=== PATIENT | male | born 1985 | race Caucasian/White ===

== ENCOUNTER 2019-08-30 08:13 | Emergency (ER) | payer OTHER ==
[~2019-08-30] VITALS: Ht 188 cm; Wt 104.3 kg
--- OUTSIDE RECORDS SUMMARY | 2019-08-30 08:40 | XMS ---
PreManage Notification: ALDA RON [employer] Events No recent Security Events currently on file CRITERIA MET - PDMP CARE PROVIDERS Corey Rosa Community Health Worker 04/20/2018-Alexandrea Peraza - PHONE: [phone] RYDER LAROSE Nurse Practitioner Current PHONE: [phone] RYDER LAROSE Primary Care Current PHONE: Unknown Corey Peraza - Case or Plastics Supervisor Current Shel[place] PHONE: [phone] Shanika has no Care Guidelines for this patient. Geovanni VISIT COUNT (12 MO.) [address] [address] JOSÉ MANUEL Anthony TOTAL 10 NOTE: Visits indicate total known visits. ED/UCC VISIT TRACKING (12 MO.) 08/30/2019 08:13 JOS[facility] MANU[facility] [place] TYPE: Emergency COMPLAINT: - BACK AND SHOULDER PAIN, NON INJ 06/15/2019 07:11 [facility] [place] TYPE: Emergency DIAGNOSES: - Diarrhea, unspecified - Acute bronchitis due to other specified organisms - Pain, unspecified - Nausea with vomiting, unspecified - SOB,CHEST PAIN 02/09/2019 10:27 [facility] [place] TYPE: Emergency DIAGNOSES: - CHEST PAIN - Other chest pain 12/11/2018 09:02 [facility] [place] TYPE: Emergency DIAGNOSES: - Slow transit constipation - abdominal pain - Functional diarrhea - Left upper quadrant pain 11/29/2018 07:49 [facility] [place] TYPE: Emergency DIAGNOSES: - ABDOMINAL PAIN - Epigastric pain 11/23/2018 08:00 [facility] [place] TYPE: Emergency DIAGNOSES: - BACK PAIN - Other chronic pain - Pain in thoracic spine 11/22/2018 21:14 [facility] [place] TYPE: Emergency DIAGNOSES: - BACK PAIN 11/12/2018 21:42 [facility] [place] TYPE: Emergency DIAGNOSES: - Other chest pain - CHEST PAIN [facility]2018 07[facility] DIAGNOSES: - Other specified dorsopathies, lumbar region - LOWER BACK AND RIGHT HIP PAIN 09/12/2018 08:59 [facility] [place] TYPE: Emergency DIAGNOSES: - Back pain - Pain in thoracic spine - Low back pain INPATIENT VISIT TRACKING (12 MO.) No inpatient visits to display in this time frame [email or web address]
[2019-08-30] MEDS ORDERED: ROBAXIN-750750 MG PO (08:52)
[2019-08-30] MEDS ORDERED: LISINOPRIL-HCT1 EAC2 PO (08:54)
== END 2019-08-30 09:00 | disposition home or self-care (01) ==
LOC: ED 08:13
DX: S46.911A Strain of unspecified muscle, fascia and tendon at shoulder and upper arm level, right arm, initial encounter (principal); M62.838 Other muscle spasm; I10 Essential (primary) hypertension; F17.200 Nicotine dependence, unspecified, uncomplicated; X58.XXXA Exposure to other specified factors, initial encounter
CPT/HCPCS: 99283

== ENCOUNTER → 2020-02-23 | Emergency (ER) | payer OTHER ==
[~2020-02-23] VITALS: Ht 188 cm; Wt 108.9 kg
[~2020-02-23] MED LIST: LISINOPRIL-HCT1 EAC2 PO; ROBAXIN-750750 MG PO
== END ==
LOC: ED 09:45
DX: S39.012A Strain of muscle, fascia and tendon of lower back, initial encounter (principal); I10 Essential (primary) hypertension; F17.200 Nicotine dependence, unspecified, uncomplicated; Z91.030 Bee allergy status; Z88.5 Allergy status to narcotic agent; X58.XXXA Exposure to other specified factors, initial encounter
CPT/HCPCS: 99283

== ENCOUNTER 2025-04-29 08:15 | Emergency (ER) | payer OTHER ==
[~2025-04-29] VITALS: Ht 188 cm; Wt 113.0 kg
[2025-04-29 09:32] VITALS: BP 150/101
== END 2025-04-29 09:32 | disposition home or self-care (01) ==
LOC: ED 08:15
DX: S40.011A Contusion of right shoulder, initial encounter (principal); F17.200 Nicotine dependence, unspecified, uncomplicated; I10 Essential (primary) hypertension; W14.XXXA Fall from tree, initial encounter; Z91.030 Bee allergy status; Z88.5 Allergy status to narcotic agent
CPT/HCPCS: 73030; 99283